=== PATIENT | male | born 1955 | race Caucasian/White ===

== ENCOUNTER 2018-03-20 09:09 | Inpatient (IN) | payer OTHER, MEDICAID ==
[2018-03-20] VITALS (31 sets, daily range): BP systolic 74–126; BP diastolic 27–79
[~2018-03-20] VITALS: Ht 167.6 cm; Wt 59.9 kg
[2018-03-20] MEDS ORDERED: GENTAMICIN 80MG PREMIX 100 ML IV ONE (09:30)
[2018-03-20] MEDS ORDERED: VANCOMYCIN 1 G PREMIX 200 ML IV ONE (09:30)
[2018-03-20] MEDS ORDERED: LEVOFLOXACIN 500MG PREMIX 100 ML IV ONE (09:30)
[2018-03-20] MEDS ORDERED: SODIUM CHLORIDE 0.9% 1000ML BAG (SEPSIS BOLUS) IV ONE (09:45)
[2018-03-20] MEDS ORDERED: ACETAMINOPHEN 650MG SUPP PR ONE (09:45)
[2018-03-20] MEDS ORDERED: ETOMIDATE 2MG/ML 10ML VIAL IV ONE ×2 (10:00→13:42)
[2018-03-20] MEDS ORDERED: MIDAZOLAM HCL 2 MG/2 ML VIAL IV ONE (10:00)
[2018-03-20] MEDS ORDERED: MIDAZOLAM HCL 50 MG in DEXTROSE 5% WATER 40 ML IV ONE (10:00)
[2018-03-20] MEDS ORDERED: VECURONIUM BROMIDE 10 MG/VIAL IV ONE ×2 (10:00→13:42)
[2018-03-20] MEDS ORDERED: MIDAZOLAM HCL 50 MG in DEXTROSE 5% WATER 40 ML IV PRN (10:15)
[2018-03-20 10:20] LABS: BASOPHILS % 0.3 % (0.0-2.0); EOSINOPHILS % 0.1 % (0.0-5.0); HEMATOCRIT. 34.3 % (42.0-52.0); HEMOGLOBIN. 11.2 g/dL (14.0-18.0); LYMPHOCYTES % 13.1 % (20.0-50.0); MEAN CORPUSCULAR VOLUME 91.8 fL (80.0-94.0); MEAN PLATELET VOLUME 8.1 fl (7.4-10.4); MONOCYTES % 8.4 % (2.0-8.0); NEUTROPHILS % 78.1 % (40.0-76.0); PLATELET 175 x1000/uL (130-400); RED BLOOD CELL COUNT 3.74 mill/uL (4.7-6.1); RED CELL DISTRIBUTION WIDTH 17.9 % (11.6-14.6)
[2018-03-20 10:27] LABS: INR 1.1; PROTHROMBIN TIME 10.9 sec (9.1-11.1)
[2018-03-20 10:37] LABS: CHLORIDE 100 mEq/L (98-107)
[2018-03-20 10:56] LABS: PHOSPHORUS 2.6 mg/dL (2.5-4.9)
[2018-03-20 11:11] LABS: BG BASE EXCESS 2.7 mmol/L (-2.0-2.0); BG CARBOXYHEMOGLOBIN 1.3 % (0.5-1.5); BG DEOXYHEMOGLOBIN 3.4 % (0.0-5.0); BG FRACTION INSPIRED OXYGEN 60; BG HCO3 ACT 27.9 mmol/L (22.0-26.0); BG METHEMOGLOBIN 0.2 % (0.0-1.5); BG OXYGEN SATURATION 96.5 % (92.0-98.5); BG OXYHEMOGLOBIN 95.1 % (94.0-97.0); BG PCO2 45.6 mmHg (35.0-45.0); BG PH 7.405 (7.350-7.450); BG PO2 95.8 mmHg (75.0-100.0); BG SAMPLE SITE RIGHT BRACHIAL; BG TIDAL VOLUME(mL) 500 mL; BG TOTAL HEMOGLOBIN 11.2 g/dL (12.0-18.0); BG VENT MODE VENT - A/C; BG VENT RATE 14 set
[2018-03-20] MEDS ORDERED: NOREPINEPHRINE 4 MG in DEXT 5% WATER 246 ML IV ONE (12:00)
[2018-03-20] MEDS ORDERED: NOREPINEPHRINE 4 MG in DEXT 5% WATER 246 ML IV NR ×4 (12:15)
[2018-03-20] MEDS ORDERED: SODIUM CHLORIDE 0.9% 10ML VIAL ONE (13:42)
[2018-03-20] MEDS ORDERED: IPRATROPIUM/ALBUTEROL 0.5-3(2.5)MG/3ML NEB HHN PRN (14:30)
[2018-03-20] MEDS ORDERED: PIPERACILLIN/TAZ 3.375G PREMIX 50 ML IV SCH (14:30)
[2018-03-20] MEDS ORDERED: TAZOBACTAM XX SCH (16:00)
[2018-03-20] MEDS ORDERED: PIPERACILLIN XX SCH (16:00)
[2018-03-20] MEDS ORDERED: AZITHROMYCIN XX SCH (16:00)
[2018-03-20] MEDS ORDERED: VANCOMYCIN XX SCH (16:00)
[2018-03-20] MEDS ORDERED: ACETAMINOPHEN 650MG SUPP PR PRN (16:38)
[2018-03-20] MEDS: BLOOD SUGAR DIAGNOSTIC STRIP TEST SCH ×3 (16:40→21:08)
[2018-03-20] MEDS: INSULIN LISPRO 100 UNITS/ML SUBCUT SCH ×3 (16:41→21:00)
[2018-03-20] MEDS: DEXTROSE 50% WATER 50ML SYRINGE IV PRN ×2 (16:44→17:59)
[2018-03-20] MEDS: PROPOFOL 10MG/ML 100ML 100 ML IV PRN ×2 (16:44→21:08)
[2018-03-20 17:33] LABS: BG BASE EXCESS -0.1 mmol/L (-2.0-2.0); BG CARBOXYHEMOGLOBIN 0.5 % (0.5-1.5); BG DEOXYHEMOGLOBIN 16.7 % (0.0-5.0); BG FRACTION INSPIRED OXYGEN 100; BG HCO3 ACT 23.8 mmol/L (22.0-26.0); BG METHEMOGLOBIN 0.5 % (0.0-1.5); BG OXYGEN SATURATION 83.1 % (92.0-98.5); BG OXYHEMOGLOBIN 82.3 % (94.0-97.0); BG PCO2 36.1 mmHg (35.0-45.0); BG PH 7.437 (7.350-7.450); BG PO2 48.8 mmHg (75.0-100.0); BG SAMPLE SITE PA LINE; BG TIDAL VOLUME(mL) 500 mL; BG TOTAL HEMOGLOBIN 10.9 g/dL (12.0-18.0); BG VENT MODE VENT - A/C; BG VENT RATE 14 set
[2018-03-20] MEDS: PIPERACILLIN/TAZ 2.25G PREMIX 50 ML IV SCH (17:36)
[2018-03-20] MEDS ORDERED: PHENYLEPHRINE 40 MG in DEXT 5% WATER 246 ML IV PRN ×2 (18:00→18:30)
[2018-03-20] MEDS ORDERED: NOREPINEPHRINE 16 MG in DEXT 5% WATER 234 ML IV PRN (18:00)
[2018-03-20] MEDS ORDERED: LISI-604 PO (18:11)
[2018-03-20] MEDS ORDERED: SEVE800T8 PO (18:11)
[2018-03-20] MEDS ORDERED: ALPHAGAN (18:11)
[2018-03-20] MEDS ORDERED: [UNRECOGNIZED DRUG - OTHER] (18:11)
[2018-03-20] MEDS ORDERED: HYDR100T26 PO (18:11)
[2018-03-20] MEDS ORDERED: SIMV20TA6 PO (18:11)
[2018-03-20] MEDS ORDERED: LABE300T3 PO (18:11)
[2018-03-20] MEDS ORDERED: PATI16.8 PO (18:11)
[2018-03-20] MEDS ORDERED: CLOP75TA16 PO (18:11)
[2018-03-20] MEDS ORDERED: GLIP5TAB12 PO (18:11)
[2018-03-20] MEDS ORDERED: FOLI0.8T23 PO (18:11)
[2018-03-20] MEDS ORDERED: AMLO10TA4 PO (18:11)
[2018-03-20] MEDS ORDERED: AZITHROMYCIN 500MG in DEXTROSE 5% WATER 250ML IV SCH (18:30)
[2018-03-20] MEDS ORDERED: DEXT 5%/0.9% NACL 1,000 ML IV SCH (18:45)
[2018-03-20] MEDS: NOREPINEPHRINE 16 MG in DEXT 5% WATER 234 ML IV PRN (18:58)
[2018-03-20] MEDS: FENTANYL CITRATE/PF 500 MCG in SODIUM CHLORIDE 0.9% 40 ML IV PRN ×2 (19:00→23:31)
[2018-03-20] MEDS: IPRATROPIUM/ALBUTEROL 0.5-3(2.5)MG/3ML NEB HHN SCH ×2 (20:08→23:55)
[2018-03-21] VITALS (32 sets, daily range): BP systolic 53–158; BP diastolic 25–82
[2018-03-21] MEDS ORDERED: BLOOD SUGAR DIAGNOSTIC STRIP TEST SCH
[2018-03-21] MEDS ORDERED: INSULIN LISPRO 100 UNITS/ML SUBCUT SCH
[2018-03-21] MEDS: PROPOFOL 10MG/ML 100ML 100 ML IV PRN (01:25)
[2018-03-21] MEDS: PIPERACILLIN/TAZ 2.25G PREMIX 50 ML IV SCH (01:33)
[2018-03-21 02:14] LABS: BG BASE EXCESS -7.9 mmol/L (-2.0-2.0); BG CARBOXYHEMOGLOBIN 0.4 % (0.5-1.5); BG DEOXYHEMOGLOBIN 7.6 % (0.0-5.0); BG FRACTION INSPIRED OXYGEN 100; BG HCO3 ACT 20.2 mmol/L (22.0-26.0); BG METHEMOGLOBIN 0.4 % (0.0-1.5); BG OXYGEN SATURATION 92.3 % (92.0-98.5); BG OXYHEMOGLOBIN 91.6 % (94.0-97.0); BG PCO2 53.3 mmHg (35.0-45.0); BG PH 7.197 (7.350-7.450); BG PO2 80.4 mmHg (75.0-100.0); BG SAMPLE SITE RIGHT RADIAL; BG TIDAL VOLUME(mL) 500 mL; BG TOTAL HEMOGLOBIN 10.9 g/dL (12.0-18.0); BG VENT MODE VENT - A/C; BG VENT RATE 14 set
[2018-03-21] MEDS ORDERED: VASOPRESSIN 10 UNIT in SODIUM CHLORIDE 0.9% 99.5 ML IV PRN (02:30)
[2018-03-21] MEDS ORDERED: SODIUM BICARBONATE 8.4% 1 MEQ/ML 50ML SYR IV NR (03:00)
[2018-03-21] MEDS: IPRATROPIUM/ALBUTEROL 0.5-3(2.5)MG/3ML NEB HHN SCH (03:58)
[2018-03-21] MEDS ORDERED: EPINEPHRINE 1 MG in SODIUM CHLORIDE 0.9% 249 ML IV PRN (04:45)
[2018-03-21 05:47] LABS: HEMATOCRIT. 32.9 % (42.0-52.0); HEMOGLOBIN. 10.3 g/dL (14.0-18.0); MEAN CORPUSCULAR HEMOGLOBIN 30.5 pg (28.0-32.0); PLATELET 106 x1000/uL (130-400); RED BLOOD CELL COUNT 3.39 mill/uL (4.7-6.1); RED CELL DISTRIBUTION WIDTH 18.3 % (11.6-14.6)
[2018-03-21] MEDS: NOREPINEPHRINE 16 MG in DEXT 5% WATER 234 ML IV PRN (05:55)
[2018-03-21] MEDS ORDERED: PANTOPRAZOLE SODIUM 40 MG/VIAL IV SCH (09:00)
[2018-03-21 11:10] LABS: ATYPICAL LYMPHOCYTES 1; NUCLEATED RED BLOOD CELLS 5 /100 WBC; PLATELET ESTIMATE SLIGHTLY DECREASED
[2018-03-21] MEDS ORDERED: CALCIUM CHLORIDE 1GM/10ML SYR IV ONE ×2 (15:23→15:41)
[2018-03-21] MEDS ORDERED: EPINEPHRINE 0.1MG/ML (1:10,000) 10ML SYR ONE ×2 (15:23→15:41)
[2018-03-21] MEDS ORDERED: SODIUM BICARBONATE 7.5% 0.9 MEQ/ML 50ML SYR IV ONE ×2 (15:23→15:41)
[2018-03-24 19:09] LABS: INFLUENZA B AB CF 1:16 (Neg:<1:8)
== END 2018-03-21 05:59 | disposition expired | DRG 871 ==
LOC: ER 09:09 → CVICU 10:25 → EDBEDREQ 10:30 → ENRESERV 14:24
PROVIDERS: ADMIT Emergency Medicine; ATTEND Emergency Medicine
PROC: 0BH17EZ Insertion of Endotracheal Airway into Trachea, Via Natural or Artificial Opening (ICD-10-PCS; principal; 2018-03-20)
PROC: 5A1935Z Respiratory Ventilation, Less than 24 Consecutive Hours (ICD-10-PCS; 2018-03-20)
PROC: B54MZZA Ultrasonography of Right Upper Extremity Veins, Guidance (ICD-10-PCS; 2018-03-20)
PROC: 05HY33Z Insertion of Infusion Device into Upper Vein, Percutaneous Approach (ICD-10-PCS; 2018-03-20)
PROC: 5A12012 Performance of Cardiac Output, Single, Manual (ICD-10-PCS; 2018-03-21)
PROC: 5A12012 Performance of Cardiac Output, Single, Manual (ICD-10-PCS; 2018-03-21)
PROC: 5A12012 Performance of Cardiac Output, Single, Manual (ICD-10-PCS; 2018-03-21)
PROC: 5A12012 Performance of Cardiac Output, Single, Manual (ICD-10-PCS; 2018-03-21)
DX: A41.51 Sepsis due to Escherichia coli [E. coli] (principal); N18.6 End stage renal disease; R65.21 Severe sepsis with septic shock; J18.1 Lobar pneumonia, unspecified organism; J80 Acute respiratory distress syndrome; E46 Unspecified protein-calorie malnutrition; E87.4 Mixed disorder of acid-base balance; I13.2 Hypertensive heart and chronic kidney disease with heart failure and with stage 5 chronic kidney disease, or end stage renal disease; G93.40 Encephalopathy, unspecified; D64.9 Anemia, unspecified; E11.22 Type 2 diabetes mellitus with diabetic chronic kidney disease; I46.9 Cardiac arrest, cause unspecified; I50.9 Heart failure, unspecified; R74.8 Abnormal levels of other serum enzymes; Z79.84 Long term (current) use of oral hypoglycemic drugs; Z89.412 Acquired absence of left great toe; Z99.2 Dependence on renal dialysis; Z68.21 Body mass index [BMI] 21.0-21.9, adult; Z78.1 Physical restraint status; Z87.01 Personal history of pneumonia (recurrent)
CPT/HCPCS: 31500; 36415; 36569; 36600; 71045; 76937; 80048; 82375; 82805; 82962; 83605; 83735; 84100; 84145; 84478; 84484; 86710; 86850; 86900; 87070; 87077; 87186; 87804; 93005; 94002; 94640; 96374; 96375; 99291; A4216; C1725; J0456; J1580; J1956; J2250; J2370; J2543; J2704; J3010; J3370; J3490; J7030; J7040; J7042; J7060; J7620